=== PATIENT | female | born 1980 | race Caucasian/White ===

== ENCOUNTER 2024-03-11 18:44 | Emergency (ER) | payer OTHER, SELFPAY ==
[2024-03-11 18:46] VITALS: BP 143/100
--- NOTE | 2024-03-11 19:08 | ED.GENMED ---
History of Present Illness
<Kelly Red PA-C - Last Filed: 03/11/24 22:11>
General
Chief Complaint: Abdominal Pain
Source: patient
Exam Limitations: none
Time Seen by Provider: 03/11/24 19:02
Nursing documentation reviewed up to this point in time: agreed with
History of Present Illness
History of Present Illness:
Patient is a 44-year-old female with history of hypertension, hyperlipidemia presenting to the emergency department with right lower abdominal/flank pain in setting of recently diagnosed kidney stone. Patient states that symptoms started acutely on
Tuesday midday. She describes a sharp, severe pain in her right lower abdomen. She was seen in urgent care on Tuesday where she had blood work, urinalysis, and abdominal x-ray done. She was told that she had a kidney stone. And sent home with
Flomax, Motrin.
Patient states that symptoms initially seem be improving although yesterday she had a few episodes of very severe pain. Symptoms now seem to be coming in waves. Patient has been taking ibuprofen and Tylenol at home. Patient came to the emergency
department today due to intractable pain.
Patient denies any fever, chills, vomiting. Patient denies any hematuria, dysuria, or urinary hesitancy/frequency.
Patient does have a history of 1 kidney stone many years ago.
Past History
<Kelly Red PA-C - Last Filed: 03/11/24 22:11>
Past History
ED Past Medical History: None
ED Past Surgical History: None
Social History
Tobacco: Former smoker
Alcohol: None
Drug: None
Personal:
Living: with family
Employment: Employed
Family History
Family History: Other (noncontributory, no inflammatory bowel disease)
Review of Systems
<Kelly Red PA-C - Last Filed: 03/11/24 22:11>
Review of Systems
Allergies reviewed?: Yes
All Other Systems: ROS reviewed and negative except as documented in HPI and ROS
Phy Exam
<Kelly Red PA-C - Last Filed: 03/11/24 22:11>
Physical Exam
Physical Exam:
Vitals: Hypertensive, otherwise vital signs stable. Afebrile
General: Patient is well appearing, no acute distress. Nontoxic appearing
Skin: Warm and dry, no rashes or lesions
Head: Normocephalic, atraumatic
Eyes: Sclera nonicteric.
Throat: Protecting airway
Neck: Normal ROM, no cervical spine tenderness, no meningismus
Cardiac: Regular rate and rhythm, no murmurs.
Pulm: Normal respiratory effort, no wheezes, rales, rhonchi heard on exam.
Abdomen: Abdomen soft. No abdominal tenderness. No CVA tenderness
Extremities: No evidence of cyanosis or edema
Neuro: AAOx3. Grossly intact.
Psychiatric: Normal affect.
Course
<Kelly Red PA-C - Last Filed: 03/11/24 22:11>
Orders/Labs/Results
Orders:
Orders
03/11/24 18:51
Urinalysis Urgent
Date Specimen was Collected: 03/11/24
Time Specimen was Collected: 18:49
Urine Microscopic Urgent
Date Specimen was Collected: 03/11/24
Time Specimen was Collected: 18:49
Urine Culture Urgent
SHREE Source: U
Specimen Description:
Date Specimen was Collected: 03/11/24
Time Specimen was Collected: 18:49
Comment: ADD ON
03/11/24 19:22
0.9% Sodium Chloride 1000 ml [Nss] 1,000 ml IV BOLUS
03/11/24 19:23
CT Abd/pel Without Iv Or Oral Urgent
Comment:
Reason For Exam: Right flank pain
03/11/24 19:31
Complete Blood Count/With Diff Urgent
Comprehensive Metabolic Panel Urgent
HCG, Serum Qualitative Screen Urgent
Comment: ADD ON
03/11/24 19:45
Add On- LAB Urgent
Tests Added?: HCG, qual
03/11/24 21:04
Ketorolac [Toradol] 15 mg IV NOW STA
03/11/24 21:38
Add On - Microbiology Urgent
Tests Added?: urine culture
Oxycodone [Roxicodone] 5 mg PO NOW STA
Abnormal Lab Results
03/11/24 03/11/24
18:51 19:31
RBC 3.85 L 10^6/uL
(4.20-5.40)
Hct 36.1 L %
(37.0-47.0)
MCH 31.7 H pg
(27.0-31.0)
Monocytes % 9.7 H %
(1.7-9.3)
Creatinine 1.2 H mg/dL
(0.6-1.0)
Glucose 101 H mg/dl
(70-99)
Alkaline Phosphatase 162 H U/L
(38-126)
Ur Leukocyte Esterase 1+ A
(Negative)
Urine WBC 6-10 A /HPF
(0-5)
03/11/24 19:31
03/11/24 19:31
Vital Signs
Initial and Last Documented VS:
Initial Vital Signs
Temp Pulse Resp BP Pulse Ox
97.9 F 100 18 143/100 98
03/11/24 18:46 03/11/24 18:46 03/11/24 18:46 03/11/24 18:46 03/11/24 18:46
Last Documented Vital Signs
Temp Pulse Resp BP Pulse Ox
97.9 F 87 18 136/96 99
03/11/24 18:46 03/11/24 21:43 03/11/24 21:43 03/11/24 21:43 03/11/24 21:43
<Ancelmo Glasgow, DO - Last Filed: 03/12/24 00:38>
Orders/Labs/Results
Orders:
Orders
03/11/24 18:51
Urinalysis Urgent
Date Specimen was Collected: 03/11/24
Time Specimen was Collected: 18:49
Urine Microscopic Urgent
Date Specimen was Collected: 03/11/24
Time Specimen was Collected: 18:49
Urine Culture Urgent
SHREE Source: U
Specimen Description:
Date Specimen was Collected: 03/11/24
Time Specimen was Collected: 18:49
Comment: ADD ON
03/11/24 19:22
0.9% Sodium Chloride 1000 ml [Nss] 1,000 ml IV BOLUS
03/11/24 19:23
CT Abd/pel Without Iv Or Oral Urgent
Comment:
Reason For Exam: Right flank pain
03/11/24 19:31
Complete Blood Count/With Diff Urgent
Comprehensive Metabolic Panel Urgent
HCG, Serum Qualitative Screen Urgent
Comment: ADD ON
03/11/24 19:45
Add On- LAB Urgent
Tests Added?: HCG, qual
03/11/24 21:04
Ketorolac [Toradol] 15 mg IV NOW STA
03/11/24 21:38
Add On - Microbiology Urgent
Tests Added?: urine culture
Oxycodone [Roxicodone] 5 mg PO NOW STA
Abnormal Lab Results
03/11/24 03/11/24
18:51 19:31
RBC 3.85 L 10^6/uL
(4.20-5.40)
Hct 36.1 L %
(37.0-47.0)
MCH 31.7 H pg
(27.0-31.0)
Monocytes % 9.7 H %
(1.7-9.3)
Creatinine 1.2 H mg/dL
(0.6-1.0)
Glucose 101 H mg/dl
(70-99)
Alkaline Phosphatase 162 H U/L
(38-126)
Ur Leukocyte Esterase 1+ A
(Negative)
Urine WBC 6-10 A /HPF
(0-5)
03/11/24 19:31
03/11/24 19:31
Vital Signs
Initial and Last Documented VS:
Initial Vital Signs
Temp Pulse Resp BP Pulse Ox
97.9 F 100 18 143/100 98
03/11/24 18:46 03/11/24 18:46 03/11/24 18:46 03/11/24 18:46 03/11/24 18:46
Last Documented Vital Signs
Temp Pulse Resp BP Pulse Ox
97.9 F 87 18 136/96 99
03/11/24 18:46 03/11/24 21:43 03/11/24 21:43 03/11/24 21:43 03/11/24 21:43
<Kelly Red PA-C - Last Filed: 03/11/24 22:11>
MDM/Problems Addressed
Differential Diagnosis Includes:
Not limited to: Kidney stone, pyelonephritis, UTI, appendicitis, biliary colic, etc.
MDM/Problems Addressed:
44-year-old female with persistent intermittent right flank pain following diagnosis of kidney stone at urgent care 2 days ago. No nausea, vomiting, fever, chills. Patient denies any urinary symptoms. Patient concerned given pain is persistent.
Patient hypertensive on arrival, otherwise vital signs stable. Physical exam as above. Patient well-appearing, nontoxic. Abdomen is soft and nontender in all 4 quadrants. No CVA tenderness. Cardio/pulmonary assessment unremarkable. Will check
labs, urinalysis and noncontrast CT of abdomen/pelvis to evaluate for kidney stone. Given patient is afebrile with benign abdominal exam and no anorexia�low suspicion for appendicitis. Will give fluids. Patient declines analgesia at this time.
Update: Labs reviewed. No leukocytosis. Mild renal insufficiency noted with creatinine 1.2. This is mildly increased from lab work drawn urgent care 2 days ago with a creatinine of 0.8. Urinalysis with few WBCs�do not suspect infection. Will
add on urine culture. CT pending
Chronic conditions affecting care:
History of kidney stones, hypertension
Acute Exacerbation and/or Progression of Chronic Illness:
Acutely hypertensive
<Kelly Red PA-C - Last Filed: 03/11/24 22:11>
*Critical Care Note
Total Time (30-74mins, 75-104mins- exclusive of procedures): Not Applicable
<Kelly Red PA-C - Last Filed: 03/11/24 22:11>
Update Note
Update Note:
Update 9:25 PM: Patient requesting pain medication. Will give dose of IV Toradol. CT report reviewed which does show 4.6 mm obstructing stone at right UVJ with mild to moderate hydro. Feel patient is a reasonable candidate for at home stone
passage trial. Patient does already have Flomax as prescribed by urgent care. Did discuss with attending physician�will give oral Toradol to take as well for pain management. Urology referral provided. Lengthy discussion with patient regarding
return precautions including any signs of infection. Patient comfortable with plan.
ED Attending Note
<Kelly Red PA-C - Last Filed: 03/11/24 22:11>
-
Portions of this chart may have been created with voice recognition software.� Occasional wrong word or��sound alike� substitutions may have occurred due to the inherent limitations of voice recognition software.
<Ancelmo Glasgow DO - Last Filed: 03/12/24 00:38>
ED Attending Note
Patient seen and examined by attending physician: Yes
I performed the substantive portion of visit, reviewed & personally made and approve the management plan that is documented in note by myself or TESS.: Yes
ED Attending Note:
Patient is a 44-year-old female who presents to the emergency department with 2-day history of right back, right flank and right lower quadrant abdominal pain. Patient states she is been nauseous and occasionally diaphoretic with the pain. Patient
seen urgent care and told she may have a kidney stone. Patient did follow-up with her doctor. On physical exam patient has mild right CVA tenderness with no abdominal tenderness. Extremities without cyanosis or edema. Heart is regular lungs are
clear. Patient has an obstructing stone in the right UVJ. It is almost in the bladder. Patient's had 1 previous stone. Patient will screen her urine to capture the stone. Patient referred to neurology. Patient is feeling good at this time.
Patient will be discharged
Discharge Plan
Departure
Patient Disposition: Home (Routine Discharge)
Date of Disposition: 03/11/24
Time of Disposition: 21:28
Patient with high blood pressure during this ER visit?: Yes
Covid-19: Not Applicable
Discharge Problem:
Calculus of right UVJ
Instructions: Kidney Stone, Adult ED, BLOOD PRESSURE
Prescriptions:
New
ketorolac 10 mg tablet
10 mg PO Q6H Qty: 10 0RF
Rx Instructions:
maximum total duration of 5 days from all oral, intranasal, or parenteral formulations
oxycodone 5 mg tablet
5 mg PO Q6H PRN (Reason: Pain) Qty: 5 0RF
No Action
tizanidine 4 MG tablet
4 mg PO HSPRN PRN (Reason: migraines)
sumatriptan succinate [Imitrex] 100 MG tablet
50 mg PO PRN PRN (Reason: migraines)
venlafaxine [Effexor XR] 150 MG capsule,extended release 24hr
150 mg PO DAILY
Naproxen
1 - 2 tab PO PRN PRN (Reason: migraines)
Referrals:
Amarilis Ramos PA-C [Family Provider] -
Nicolas Rudolph MD [Active] - Next open appointment
Activity Restrictions/Additional Instructions:
Return to the emergency department any fever, chills, severe abdominal pain, intractable nausea/vomiting, inability to urinate, worsening current symptoms, or any other concerns
-As discussed�your CT scan showed a kidney stone on the right side near the bladder. You should continue to strain your urine. It is important stay well-hydrated. You should follow-up with urology for further evaluation/management
-A few prescriptions have been sent to your pharmacy. You can take the oral ketorolac every 6 hours for pain. You should not take this with any other NSAID including Advil, ibuprofen, Motrin, Aleve, naproxen, etc. If you are experience severe
pain-you can take the oxycodone up to every 6 hours as needed. This will cause drowsiness and you should not take prior to driving
-As discussed�there was an incidental findings of some narrowing of your bowel seen on your CT scan. You should follow-up with your primary care provider for further evaluation and possible colonoscopy
Monitor your symptoms closely and return to the emergency department with any acute worsening/new symptoms or any signs of worsening infection
Interventions
Interventions:
*Risk Screen - Suicide Last Done: 03/11/24 18:46
*General Assessment Last Done: 03/11/24 18:46
*Neglect/Abuse Screening Last Done: 03/11/24 18:46
ED- Fall Risk Assessment Last Done: 03/11/24 21:46
*ED COVID-19 Vaccine History Last Done: 03/11/24 18:53
*Nursing Disposition Last Done: 03/11/24 21:46
RX-Tjdsic-Vxyzlsssmz Assessment Last Done: 03/11/24 19:30
Discharge Date and Time
Discharge Date/Time: 03/11/24 21:46
Print Language: E[employer]INE[employer]
[2024-03-11 19:14] LABS: Urine Albumin Negative (Neg - Trace); Urine Bilirubin Negative (Negative); Urine Character Clear (Clear); Urine Color Straw; Urine Glucose Negative (Negative); Urine Ketone Negative (Negative); Urine Leukocyte 1+ (Negative); Urine Nitrite Negative (Negative); Urine Occult Blood Negative (Negative); Urine Specific Gravity 1.005 (<1.030); Urine Urobilinogen Negative (Neg - 1+)
[2024-03-11] MEDS: NSS 1000 IV (19:32)
[2024-03-11 19:40] LABS: % Basophils 0.5 % (0-2); % Eosinophils 4.4 % (0-6); % Immature Granulocytes 0.2 % (0-0.5); % Lymphocytes 23.2 % (20.5-51.1); % Monocytes 9.7 % (1.7-9.3); Absolute Eosinophils 0.3 10^3/uL (0-0.7); Absolute Lymphocytes 1.4 10^3/uL (1.2-3.4); Absolute Monocytes 0.6 10^3/uL (0.1-0.6); Absolute Neutrophils 3.8 10^3/uL (1.4-6.5); Hematocrit 36.1 % (37.0-47.0); Hemoglobin 12.2 g/dL (12.0-16.0); Mean Corp Hgb Conc. 33.8 g/dL (33.0-37.0); Mean Corpuscular Hgb 31.7 pg (27.0-31.0); Mean Corpuscular Volume 93.8 fL (81.0-99.0); Mean Platelet Volume 9.1 fL (7.4-10.4); Nucleated Red Blood Cells % 0 %; Platelet Count 237 10^3/uL (130-400); Red Blood Cell Count 3.85 10^6/uL (4.20-5.40); Red Cell Dist. Width 13.2 % (11.5-14.5); White Blood Cell Count 6.1 10^3/uL (4.8-10.8)
[2024-03-11 19:54] LABS: ALT (SGPT) 24 U/L (0-35); AST (SGOT) 24 U/L (14-36); Albumin 3.9 g/dl (3.5-5.0); Alkaline Phosphatase 162 U/L (38-126); Blood Urea Nitrogen 16 mg/dl (7-17); Calcium 8.7 mg/dl (8.4-10.2); Carbon Dioxide 26 mmol/L (22-30); Chloride 105 mmol/L (98-107); Glucose 101 mg/dl (70-99); Potassium 3.9 mmol/L (3.5-5.1); Sodium 142 mmol/L (135-145); Total Bilirubin 0.3 mg/dl (0.2-1.3); Total Protein 6.4 g/dl (6.3-8.2); eGFR 56.54
[2024-03-11 20:04] LABS: HCG, Serum Qualitative Screen Negative
[2024-03-11 20:07] LABS: Urine Red Blood Cell None Seen /HPF (0-2)
[2024-03-11] MEDS: TORADOL 15 MG IV (21:07)
[2024-03-11 21:43] VITALS: BP 136/96
[2024-03-11] MEDS: ROXICODONE 5 MG PO (21:45)
== END 2024-03-11 21:46 | disposition home or self-care (01) ==
LOC: EMR 18:44
PROVIDERS: Physician Assistant; EMERGENCY PHYSICIAN Emergency Medicine; FAMILY PHYSICIAN Physician Assistant Medical
DX: N13.2 Hydronephrosis with renal and ureteral calculous obstruction (principal); E78.5 Hyperlipidemia, unspecified; I10 Essential (primary) hypertension; Z87.891 Personal history of nicotine dependence
CPT/HCPCS: 96374; 96361; 99284; 74176; 80053; 81003; 81015; 84703; 85025; 87086